=== PATIENT | male | born 1995 | race Caucasian/White ===

== ENCOUNTER 2017-01-29 19:21 | Emergency (ER) | payer OTHER ==
--- NOTE | 2017-01-29 19:38 | Emergency Department Record ---
History of Present Illness - General Chief complaint: Male Urogenital Problem Time Seen by Provider: 01/29/17 19:34 Source: Patient Mode of Arrival: Ambulatory Limitations: No limitations - History of Present Illness Initial comments: 21 yo male presents to ED with a CC of burning to the rectal region. Patient reports that he was treated for herpes previously, and reports that his symptoms are beginning to return. Patient denies urinary symptoms and denies health problems at his baseline. MD Complaint: Other Onset/Timin -: Days(s) Radiation: None Severity: Moderate Quality: Burning Consistency: Constant Improves with: None Worsens with: None Reports: Denies other symptoms - Related Data Previous Rx's Medication Instructions Recorded Valacyclovir HCl [Valtrex] 500 mg PO Q12H #6 tablet 01/29/17 Allergies Allergy/AdvReac Type Severity Reaction Status Date / Time No Known Drug Allergies Allergy Verified 10/02/15 02:04 Review of Systems Constitutional: Denies: Chills, Fever, Malaise, Night sweats Eyes: Denies: Eye discharge, Eye pain ENT: Denies: Congestion, Ear pain, Epistaxis Respiratory: Denies: Cough, Dyspnea Cardiovascular: Denies: Chest pain, Dyspnea on exertion Endocrine: Denies: Fatigue, Heat or cold intolerance Gastrointestinal: Reports: Other (rectal pain). Denies: Abdominal pain, Nausea , Vomiting Genitourinary: Denies: Incontinence, Retention Musculoskeletal: Denies: Arthralgia, Back pain, Gout, Joint swelling Skin: Denies: Bruising, Change in color Neurological: Denies: Abnormal gait, Confusion, Headache, Seizure Psychiatric: Denies: Anxiety Hematological/Lymphatic: Denies: Anemia, Blood Clots Past Medical History - SOCIAL HISTORY Smoking Status: Never smoker - RESPIRATORY Hx Respiratory Disorders: No - CARDIOVASCULAR Hx Cardio Disorders: Yes Comment:: murmur - NEURO Hx Neuro Disorders: No - GI Hx GI Disorders: No - Hx Genitourinary Disorders: No - ENDOCRINE Hx Endocrine Disorders: No - MUSCULOSKELETAL Hx Musculoskeletal Disorders: No - PSYCH Hx Psych Problems: No - HEMATOLOGY/ONCOLOGY Hx Hematology/Oncology Disorders: No Family Medical History Hx Cancer: Grandparents Hx Diabetes: Grandparents *Heart Comment: uncle Hx HTN: Father Physical Exam - General General Appearance: Alert, Oriented x3, Cooperative, No acute distress Limitations: No limitations - Head Head exam: Atraumatic, Normocephalic, Normal inspection Head exam detail: negative: Abrasion, Contusion, Riley's sign, General tenderness, Hematoma, Laceration - Eye Eye exam: Normal appearance. negative: Conjunctival injection, Periorbital swelling, Periorbital tenderness, Scleral icterus - ENT Ear exam: negative: Auricular hematoma, Auricular trauma Nasal Exam: negative: Active bleeding, Discharge, Dried blood, Foreign body Mouth exam: negative: Drooling, Laceration, Muffled voice, Tongue elevation - Neck Neck exam: Normal inspection. negative: Meningismus, Tenderness - Respiratory Respiratory exam: Normal lung sounds bilaterally. negative: Rales, Respiratory distress, Rhonchi, Stridor - Cardiovascular Cardiovascular Exam: Regular rate, Normal rhythm, Normal heart sounds - GI/Abdominal GI/Abdominal exam: Soft. negative: Rebound, Rigid, Tenderness - Rectal Rectal exam: Other (Lesions to the montse-rectal region c/w herpes) - exam: Deferred - Back Back exam: Denies: CVA tenderness (R), CVA tenderness (L) - Neurological Neurological exam: Alert, Normal gait, Oriented X3 - Psychiatric Psychiatric exam: Normal affect, Normal mood - Skin Skin exam: Normal color. negative: Abrasion Type of lesion: negative: abrasion Course Vital Signs 01/29/17 19:29 Temperature 99.2 F Pulse Rate [ 97 H Pulse Ox Probe] Respiratory 20 Rate Blood Pressure 134/80 [Left Arm] Pulse Ox 100 - Reevaluation(s) Reevaluation #1: 01/29/17 19:52 Symptoms appear c/w herpes, will initiate treatment with Valtrex for recurrence of symptoms. Disposition Disposition: Discharge Clinical Impression: Herpes genitalia Qualifiers: Herpes simplex infection site: rectum Qualified Code(s): A60.1 - Herpesviral infection of perianal skin and rectum Disposition: Home, Self-Care Condition: (2) Stable Instructions: Genital Herpes Simplex (ED) Additional Instructions: Return to ED if your symptoms worsen or if you have any concerns. Valtrex as directed. Follow-up with Dr. Squires in 3-5 days as directed. Prescriptions: Valacyclovir HCl [Valtrex] 500 mg PO Q12H #6 tablet Forms: Patient Portal Access Time of Disposition: 19:37
== END 2017-01-29 19:47 | disposition home or self-care (01) ==
LOC: ER 19:21
DX: A60.1 Herpesviral infection of perianal skin and rectum (principal)
CPT/HCPCS: 99282

== ENCOUNTER 2019-04-11 07:29 | Emergency (ER) | payer SELFPAY ==
--- NOTE | 2019-04-11 07:47 | Emergency Department Record ---
History of Present Illness - General Chief Complaint: Laceration(s) Stated Complaint: FINGER LAC Time Seen by Provider: 04/11/19 07:37 Source: Patient Mode of Arrival: Ambulatory Limitations: No limitations - History of Present Illness Initial Commments: The patient is here due to cutting his R thumb at work this AM on a slicer. He basically cut a piece of the tip of his thumb off. The patient states his Td is UTD and was last given in 2010. Onset/Timin -: Minutes(s) Place: Work Context: Accidental Associated Symptoms: None - [place] Coma Scale Eye Response: (4) Open spontaneously Motor Response: (6) Obeys commands Verbal Response: (5) Oriented Angelita Total: 15 - Related Data Hx Tetanus Toxoid Vaccination: Yes Year of Tetanus Vaccination: 2010 Patient Tetanus UTD (within 5 yrs): Yes Home Medications Medication Instructions Recorded Confirmed Last Taken No Home Med [NO HOME MEDS] 04/11/19 04/11/19 Unknown Allergies Allergy/AdvReac Type Severity Reaction Status Date / Time No Known Drug Allergies Allergy Verified 04/11/19 07:36 Travel Screening - Travel/Exposure Within Last 30 Days Have you traveled within the last 30 days?: No Review of Systems Constitutional: Denies: Chills, Fever Past Medical History - SOCIAL HISTORY Smoking Status: Never smoker Alcohol Use: None Drug Use: None - RESPIRATORY Hx Respiratory Disorders: No - CARDIOVASCULAR Hx Cardio Disorders: Yes Comment:: murmur - NEURO Hx Neuro Disorders: No - GI Hx GI Disorders: No - Hx Genitourinary Disorders: No - ENDOCRINE Hx Endocrine Disorders: No - MUSCULOSKELETAL Hx Musculoskeletal Disorders: No - PSYCH Hx Psych Problems: No - HEMATOLOGY/ONCOLOGY Hx Hematology/Oncology Disorders: No Family Medical History Any Significant Family History?: Yes Hx Cancer: Grandparents Hx Diabetes: Grandparents *Heart Comment: uncle Hx HTN: Father Physical Exam - General General Appearance: Alert, Cooperative - Head Head exam: Atraumatic - Eye Eye exam: Normal appearance - Extremities Extremities exam: negative: Normal inspection (There is a 4x4 mm skin avulsion of the end the R thumb. The R thumb is NVI.) Image of Finger Tip: 1 - Skin avulsion. Course Vital Signs 04/11/19 07:32 Temperature 98.6 F Pulse Rate 87 Respiratory 16 Rate Blood Pressure 128/73 Pulse Ox 98 - Reevaluation(s) Reevaluation #1: The area was cleansed with betadine and sterile saline. The wound was then dressed with Abx ointment and a bandaid. 04/11/19 07:49 Reevaluation #2: I did explain to the patient the need to keep the thumb bandaged with a bandaid and to keep it dry and to not use it at work for 3 days. 04/11/19 07:50 Disposition Disposition: Discharge Clinical Impression: Finger avulsion Qualifiers: Encounter type: initial encounter Qualified Code(s): S61.209A - Unspecified open wound of unspecified finger without damage to nail, initial encounter Disposition: Home, Self-Care Condition: (2) Stable Instructions: Laceration (ED) Additional Instructions: Keep dry for 3 days and do not use the thumb at work. Please keep antibiotic ointment and a bandaid on the wound during the day. Return to the ER for any problems or signs of infection. Forms: Patient Portal Access Time of Disposition: 07:50 Quality - Quality Measures Quality Measures: N/A - Blood Pressure Screening View Details: Yes Does Patient Have Any of the Following: No Blood Pressure Classification: Pre-Hypertensive BP Reading Systolic Measurement: 128 Diastolic Measurement: 73 Screening for High Blood Pressure: < Pre-Hypertensive BP, F/U Documented > [G8950] Pre-Hypertensive Follow-up Interventions: Referral to alternative/primary care provider.
[2019-04-11] MEDS: Diph,Pert(Acell),Tet Vac 0.5 ML SYR IM ONE (07:55)
[2019-04-11 09:11] LABS: AMPHETAMINE SCREEN URINE NOT DETECTED; BARBITURATE SCREEN URINE NOT DETECTED; BENZODIAZEPINE SCREEN URINE NOT DETECTED; COCAINE SCREEN URINE NOT DETECTED; METHADONE SCREEN URINE NOT DETECTED; METHAMPHETAMINE SCREEN NOT DETECTED; OPIATE SCREEN URINE NOT DETECTED; OXYCODONE SCREEN URINE NOT DETECTED; PHENCYCLIDINE SCREEN URINE NOT DETECTED; PROPOXYPHENE SCREEN URINE NOT DETECTED; THC SCREEN URINE NOT DETECTED; TRICYCLIC ANTIDEPRESSANT SCRN NOT DETECTED
== END 2019-04-11 08:02 | disposition home or self-care (01) ==
LOC: ER 07:29
DX: S61.011A Laceration without foreign body of right thumb without damage to nail, initial encounter (principal); W26.0XXA Contact with knife, initial encounter; Y93.G1 Activity, food preparation and clean up; Y92.233 Cafeteria of hospital as the place of occurrence of the external cause; Y99.0 Civilian activity done for income or pay
CPT/HCPCS: 80305; 90715; 96372; 99283

== ENCOUNTER 2019-05-11 08:29 | Emergency (ER) | payer SELFPAY ==
--- NOTE | 2019-05-11 08:50 | Emergency Department Record ---
History of Present Illness - General Chief complaint: Male Urogenital Problem Stated complaint: DISCHARGE Time Seen by Provider: 05/11/19 08:36 Source: Patient Mode of Arrival: Ambulatory Limitations: No limitations - History of Present Illness Initial comments: The patient is here due to a 2 day hx of penile discharge. He denies any pain, dysuria, rash, fever, vomiting or diarrhea. The patient denies any recent diagnosis of STD's but has had genital herpes in the past. The patient also denies any sexual activity in the last 2 months. MD Complaint: Penile discharge, Other Onset/Timin -: Days(s) Location: Penis Improves with: None Worsens with: None Reports: Discharge - Related Data Sexually active: Yes (pt states not sexually active in couple months) Previous Rx's Medication Instructions Recorded Doxycycline Monohydrate [Mondoxyne 100 mg PO BID 7 Days #14 capsule 05/11/19 Nl] Allergies Allergy/AdvReac Type Severity Reaction Status Date / Time No Known Drug Allergies Allergy Verified 04/11/19 07:36 Travel Screening - Travel/Exposure Within Last 30 Days Have you traveled within the last 30 days?: No Review of Systems Constitutional: Denies: Chills, Fever Gastrointestinal: Denies: Abdominal pain Genitourinary: Denies: Dysuria, Hematuria, Testicular pain Musculoskeletal: Denies: Arthralgia Skin: Denies: Pruritus Past Medical History - SOCIAL HISTORY Smoking Status: Never smoker Alcohol Use: None Drug Use: None - RESPIRATORY Hx Respiratory Disorders: No - CARDIOVASCULAR Hx Cardio Disorders: Yes Comment:: murmur - NEURO Hx Neuro Disorders: No - GI Hx GI Disorders: No - Hx Genitourinary Disorders: No - ENDOCRINE Hx Endocrine Disorders: No - MUSCULOSKELETAL Hx Musculoskeletal Disorders: No - PSYCH Hx Psych Problems: No - HEMATOLOGY/ONCOLOGY Hx Hematology/Oncology Disorders: No Family Medical History Any Significant Family History?: Yes Hx Cancer: Grandparents Hx Diabetes: Grandparents *Heart Comment: uncle Hx HTN: Father Physical Exam - General General Appearance: Alert, Cooperative, No acute distress - Head Head exam: Atraumatic - Eye Eye exam: Normal appearance - Neck Neck exam: Normal inspection, Full ROM. negative: Tenderness - Respiratory Respiratory exam: Normal lung sounds bilaterally. negative: Respiratory distress - Cardiovascular Cardiovascular Exam: Regular rate, Normal rhythm - GI/Abdominal GI/Abdominal exam: Soft, Normal bowel sounds. negative: Guarding, Tenderness - exam: Circumcision, Normal inspection, Urethral discharge (clear.). nega tive: Scrotal swelling, Testicular tenderness - Neurological Neurological exam: Alert. negative: Motor sensory deficit Course Vital Signs 05/11/19 08:33 Temperature 97.8 F Pulse Rate 99 H Respiratory 20 Rate Blood Pressure 136/73 Pulse Ox 95 - Reevaluation(s) Reevaluation #1: I did discuss the urine result that was positive for 10-15 wbc's with the patient. I also did discuss the fact that a discharge in a young male is almost always an STD. Due to that fact we will treat the patient for GC and Chlamydia. He is to see his PCP next week for recheck and to have further testing for HIV performed if he chooses to. 05/11/19 09:15 Medical Decision Making - Data Complexity MDM Data: Labs Ordered and/or Reviewed Disposition Disposition: Discharge Clinical Impression: Urethritis Disposition: Home, Self-Care Condition: (2) Stable Instructions: Nonspecific Urethritis in Men (ED) Additional Instructions: Please take the Doxycyline as directed and practice safe sex. Please see your family doctor next week for recheck and for further testing. Return to the ER for any worsening symptoms. Prescriptions: Doxycycline Monohydrate [Mondoxyne Nl] 100 mg PO BID 7 Days #14 capsule Forms: Patient Portal Access Time of Disposition: 09:12 Quality - Quality Measures Quality Measures: N/A - Blood Pressure Screening View Details: Yes Does Patient Have Any of the Following: No Blood Pressure Classification: Pre-Hypertensive BP Reading Systolic Measurement: 136 Diastolic Measurement: 73 Screening for High Blood Pressure: < Pre-Hypertensive BP, F/U Documented > [G8950] Pre-Hypertensive Follow-up Interventions: Referral to alternative/primary care provider.
[2019-05-11 08:58] LABS: URINE APPEARANCE CLEAR; URINE BILIRUBIN NEGATIVE (NEGATIVE); URINE BLOOD NEGATIVE (NEGATIVE); URINE COLOR YELLOW; URINE GLUCOSE (UA) NEGATIVE (NEGATIVE); URINE KETONE NEGATIVE (NEGATIVE); URINE LEUKOCYTE ESTERASE TRACE (NEGATIVE); URINE NITRITE NEGATIVE (NEGATIVE); URINE PROTEIN TRACE (NEGATIVE); URINE UROBILINOGEN 0.2 E.U./dL (0.20 - 1.00)
[2019-05-11 09:02] LABS: URINE EPITHELIAL CELLS NONE SEEN (FEW); URINE MUCUS LIGHT; URINE RBC NONE SEEN (NONE SEEN)
[2019-05-11] MEDS ORDERED: CEFTRIAXONE 250 MG VIAL IM ONE (09:05)
[2019-05-11] MEDS ORDERED: DOXYCYCLINE HYCLATE 100 MG CAPSULE PO ONE (09:08)
== END 2019-05-11 09:17 | disposition home or self-care (01) ==
LOC: ER 08:29
DX: N34.2 Other urethritis (principal)
CPT/HCPCS: 99284 ×2; 96372; 81001; J0696